=== PATIENT | male | born 1950 | race Two or more races ===

== ENCOUNTER → 2024-06-18 | Outpatient (CLI) | payer MEDICARE, BC, SELFPAY ==
--- NOTE | 2024-06-18 | XR_ITS ---
Examination: Cervical spine 3 views Technique one AP lateral coned AP odontoid cervical spine 3 views Exam date and time: June 18, 2024 0853 hours Comparison October 04, 2023 INDICATIONS: Post cervical spine surgery June 11, 2024 FINDINGS: Status post cervical fusion C3-C4 with anatomic alignment Moderate degenerative disc disease below the fusion site, C4-C5, C5-C6 Intact odontoid Heavy soft tissue vascular calcification IMPRESSION: Cervical fusion C3-C4 with anatomic alignment
== END | disposition home or self-care (01) ==
PROVIDERS: PCP Family Medicine; Referring Provider Orthopaedic Surgery Orthopaedic Surgery of the Spine; Visit Provider Orthopaedic Surgery Orthopaedic Surgery of the Spine
DX: M43.22 Fusion of spine, cervical region (principal)
CPT/HCPCS: 72040

== ENCOUNTER → 2024-08-20 | Outpatient (CLI) | payer MEDICARE, BC, SELFPAY ==
--- NOTE | 2024-08-20 | XR_ITS ---
EXAMINATION: Cervical spine, 5 views Technique: Cervical spine AP, AP odontoid, lateral, bilateral obliques, 5 views Exam date and time: August 20, 2024 1208 hours COMPARISON: June 18, 2024 INDICATIONS: Postop fusion C3-C4 FINDINGS: Postop cervical fusion C3-C4 with anatomic alignment Mild disc narrowing C4-C5 C6-C7 No cervical fracture Intact odontoid Mild to moderate diffuse bilateral neural foraminal stenosis Heavy soft tissue carotid vascular calcification IMPRESSION: Postop cervical fusion C3-C4 with anatomic alignment
== END | disposition home or self-care (01) ==
LOC: CDIM 10:49
PROVIDERS: PCP Family Medicine; Referring Provider Orthopaedic Surgery Orthopaedic Surgery of the Spine; Visit Provider Orthopaedic Surgery Orthopaedic Surgery of the Spine
DX: M43.22 Fusion of spine, cervical region (principal)
CPT/HCPCS: 72050

== ENCOUNTER 2024-12-11 07:15 | Day surgery (SDC) | payer MEDICARE, BC, SELFPAY ==
[2024-12-11] VITALS (9 sets, daily range): BP systolic 100–146; BP diastolic 58–84; PULSE 50–75; RESP 12–19; TEMP 36.3–36.4; O2SAT 94–100; BMI 20.3
[2024-12-11] MEDS: SODIUM CHLORIDE 0.9% 500 ML 500 ML 20 ML IV (09:40)
[2024-12-11] MEDS: BENZOCAINE 20% (Hurricaine) SPRAY 1 DOSE TOP (09:40)
[2024-12-11] MEDS: MIDAZOLAM INJ 1 MG/ML VIAL 2 ML (ASD USE ONLY) 2 MG IVP (09:47)
[2024-12-11] MEDS: fentaNYL CIT INJ 50 mCg/ML AMP 2ML (ASD USE ONLY) IVP (09:47)
--- NOTE | 2024-12-11 11:08 | SUR.PHASEII ---
Noted in recovery occasional pauses in cardiac rhythm, PAC's and PVC's. MD made aware. 12 lead EKG obtained with BBB noted. Dr Corey will speak to Dr. Owens, patients cnc specialist and forward EKG results to him. Patient remained asymptomatic. Patient and daughter were made aware of noted cardiac issues and that Dr. Corey with speck with cnc specialist. Instructed to follow-up with Dr. Owens. Verbalized understanding.
== END 2024-12-11 10:55 | disposition home or self-care (01) ==
PROVIDERS: PCP Family Medicine; Referring Provider Specialist; Visit Provider Specialist
PROC: (CPT 43239; principal; 2024-12-11 09:00)
DX: K22.2 Esophageal obstruction (principal); K29.71 Gastritis, unspecified, with bleeding; K20.91 Esophagitis, unspecified with bleeding; Z01.810 Encounter for preprocedural cardiovascular examination
CPT/HCPCS: 43248; 43239; 93005; J1200; J2250; J3010; J7999; A9270